=== PATIENT | female | born 1965 | race Caucasian/White ===

== ENCOUNTER 2016-06-29 21:40 | Emergency (ER) | payer OTHER ==
[~2016-06-29] VITALS: Ht 170.2 cm; Wt 87.0 kg
[2016-06-29 21:46] VITALS: Ht 170.2 cm; Wt 87.0 kg
[2016-06-29] MEDS ORDERED: MECLIZINE 12.5 MG TAB PO ONE (23:00)
[2016-06-29] MEDS ORDERED: HYDROCODONE/APAP (5/325) TAB PO ONE (23:00)
--- NOTE | 2016-06-29 23:10 | ERD ---
ER Documentation Chief Complaint Date/Time DATE: 06/29/16 TIME: 23:08 Chief Complaint headache x 1 day HPI This is a 50-year-old female who presents to the emergency department today complaining of intermittent headaches for the past couple of days. States the pain is in the front of her head. She also reports some dizziness and feels that she gets heart palpitations sometimes. States she has had some nausea but denies any vomiting. States she has not taken any medication for the pain. Denies any fevers or chills or blurred vision. ROS All systems reviewed and are negative except as per history of present illness. Medications Home Meds Active Scripts Acetaminophen* (Tylophen*) 500 Mg Capsule, 1 CAP PO Q6H Y for PAIN AND OR ELEVATED TEMP, #30 CAP Prov:ASHVIN SILVA PA-C 06/29/16 Meclizine Hcl* (Antivert*) 12.5 Mg Tab, 12.5 MG PO Q6H Y for DIZZINESS, #20 TAB Prov:ASHVIN SILVAC 06/29/16 Ibuprofen* (Motrin*) 600 Mg Tab, 600 MG PO Q6, #30 TAB Prov:ASVHIN SILVAC 06/29/16 Hydrocodone/Acetaminophen (Coronado 5-325 Tablet) 1 Each Tablet, 1 TAB PO Q6H Y for PAIN, #12 TAB Prov:ASHVIN SILVAC 06/29/16 Allergies Allergies: Coded Allergies: No Known Allergy (Unverified , 06/29/16) PMhx/Soc Hx Cardiac Disorders: Yes (HNT) Hx Alcohol Use: No Hx Substance Use: No Hx Tobacco Use: No Physical Exam Vitals Vital Signs Date Time Temp Pulse Resp B/P Pulse Ox O2 Delivery O2 Flow Rate FiO2 06/29/16 21:46 97.2 76 20 179/76 100 Physical Exam Const: No acute distress Head: Atraumatic Eyes: Normal Conjunctiva. PERRLA. EOM intact ENT: Ears TMs normal. Nose no drainage. Throat no erythema no exudate Neck: Full range of motion..~ No meningismus. Resp: Clear to auscultation bilaterally Cardio: Regular rate and rhythm, no murmurs Abd: Soft, non tender, non distended. Normal bowel sounds Skin: No petechiae or rashes Back: No midline or flank tenderness Ext: No cyanosis, or edema Neur: Awake and alert. No focal neurologic deficits. No gait ataxia. Psych: Normal Mood and Affect Results 24 hrs Laboratory Tests Test 06/29/16 23:29 Bedside Urine Blood Negative Bedside Urine Glucose (UA) Negative Bedside Urine Ketones (LAB) Negative Bedside Urine Leukocyte Esterase (L Negative Bedside Urine Nitrite (LAB) Negative Bedside Urine Protein (LAB) Negative Bedside Urine pH (LAB) 6.0 Current Medications Medications (Trade) Dose Ordered Sig/Joselito Route PRN Reason Start Time Stop Time Status Last Admin Dose Admin Acetaminophen/ Hydrocodone Bitart ([place] (5/325)) 1 tab ONCE ONCE PO 06/29/16 23:00 06/29/16 23:01 DC 06/29/16 23:24 Meclizine HCl (Antivert) 25 mg ONCE ONCE PO 06/29/16 23:00 06/29/16 23:01 DC 06/29/16 23:23 Procedures/MDM This 50-year-old female who presents to the emergency department today complaint of intermittent headache and dizziness for the past couple of days. Patient states this happened her in the past. On physical exam patient had no focal neurologic deficits. She had no gait ataxia. Patient's blood pressure is elevated at 179/76. Patient indicated later on that her doctor had told her she has elevated blood pressure however she was not given any medication. I've explained to the patient at this may be a possible cause of her headaches and she was instructed to follow-up with her primary care physician for further evaluation and workup. At this time I have low suspicion for hypertensive emergency and I do not feel the patient requires laboratory work or head CT scan at this time due to the patient's headaches are episodic. I have elected not to treat the patient for hypertension here in emergency department. Upon discharge patient had pressure improved to 138/85 I have low suspicion for acute hemorrhage, mass, abscess, meningitis. Patient is afebrile and otherwise well-appearing. She was complaining of some dizziness and some palpitation and therefore did obtain an EKG. EKG read and interpreted by Dr. Hays rate [address] elevation. No QT prolongation. Sinus bradycardia. Patient had no syncopal episodes. Low Suspicion for acute [place], PE, pericarditis. I also obtained a UA and urine . UA is negative for infection. Urine test is negative. Patient's symptoms at this time consistent with episodic headache probably related to elevated blood pressure. Patient has not tried any home medications for her pain. She was given [place] and meclizine here in the emergency department and symptoms improved. Patient will be given a prescription for Coron[place] for home as well as Motrin and meclizine. At this time the patient is stable for discharge and outpatient management. Patient should follow up with their PCP in the next 1-2 days. They may return to the emergency department sooner for any persistent or worsening of symptoms. Patient understood and agreed with the plan. I discussed the patient with Dr. Hays and he is in agreement with the plan. Departure Diagnosis: Primary Impression: Headache Headache type: unspecified Headache chronicity pattern: episodic headache Intractability: not intractable Qualified Code: R51 - Nonintractable episodic headache, unspecified headache type Condition: ASHVIN Ho PA-C Jun 29, 2016 23:10
[2016-06-29 23:29] LABS: URINE BLOOD (Dip) POC Negative (NEGATIVE)
[2016-06-29] MEDS ORDERED: IBUP-1542 PO (23:58)
[2016-06-29] MEDS ORDERED: HYDR-906 PO (23:58)
[2016-06-29] MEDS ORDERED: MECL12.574 PO (23:58)
[2016-06-29] MEDS ORDERED: ACET500C5 PO (23:59)
[2016-06-30 00:30] VITALS: BP 151/72; PULSE 66; RESP 20; TEMP 97.2
== END 2016-06-30 00:35 | disposition home or self-care (01) ==
LOC: FTE 21:40
DX: R51 Headache (principal); I10 Essential (primary) hypertension
CPT/HCPCS: 81003; 93005; Z7502; Z7610